=== PATIENT | female | born 1965 | race Caucasian/White ===

== ENCOUNTER 2018-04-09 15:33 | Emergency (ER) | payer MEDICAID ==
[~2018-04-09] VITALS: Ht 152.4 cm; Wt 80.3 kg
[2018-04-09 15:49] VITALS: Ht 152.4 cm; Wt 80.3 kg
[2018-04-09 17:03] LABS: BASOPHIL % 0.4 % (0-2); PLATELET COUNT 289 x10^3mcL (130-400); RED CELL DISTRIBUTION WIDTH 14.4 % (11.5-14.5)
[2018-04-09 17:09] LABS: CALCIUM 9.5 mg/dL (8.5-10.1); CHLORIDE SERUM 99 mmol/L (98-107); CREATININE SERUM 0.7 mg/dL (0.6-1.0); GFR1 > 60 mL/min; GLUCOSE SERUM 95 mg/dL (74-106); POTASSIUM SERUM 3.8 mmol/L (3.5-5.1); SODIUM SERUM 135 mmol/L (136-145)
[2018-04-09 17:13] LABS: ALBUMIN 3.7 g/dL (3.4-5.0); ALKALINE PHOSPHATASE 74 U/L (46-116); ALT/SGPT 38 U/L (14-59); AST/SGOT 22 U/L (15-37); BILIRUBIN TOTAL 0.2 mg/dL (0.20-1.00); CHOLESTEROL 181 mg/dL (<200); LIPASE 182 IU/L (73-393); TOTAL PROTEIN, SERUM 7.7 g/dL (6.4-8.2); TRIGLYCERIDES 86 mg/dL (<150)
[2018-04-09 17:32] LABS: CHOLESTEROL/HDL RATIO 2.6; HDL CHOLESTEROL 70 mg/dL (40-60)
[2018-04-09 17:42] LABS: FREE T4 0.92 ng/dL (0.76-1.46); FREE THYROXINE INDEX 2.7 ug/dL (1.4-4.5); T3 TOTAL 1.02 ng/mL
[2018-04-09 19:12] VITALS: BP 148/84
== END 2018-04-09 19:12 | disposition home or self-care (01) ==
LOC: ED 15:33
PROVIDERS: Specialist
DX: R07.89 Other chest pain (principal); F43.0 Acute stress reaction; R51 Headache
CPT/HCPCS: 36415; 83880; 84439; J1885; Q0092